=== PATIENT | female | born 1965 | race African-American/Black ===

== ENCOUNTER → 2016-07-14 17:07 | Outpatient (CLI) | payer OTHER | END | disposition home or self-care (01) | LOC: D.MAMMO 15:30 | DX: Z12.31 Encounter for screening mammogram for malignant neoplasm of breast (principal); N95.9 Unspecified menopausal and perimenopausal disorder ==

== ENCOUNTER 2017-02-16 05:20 | Day surgery (SDC) | payer OTHER ==
[2017-02-15 08:42] LABS: HEMATOCRIT 39.3 % (36.0-48.0); HEMOGLOBIN 12.9 g/dL (12-16); MCH 31.1 pg (26.0-34.0); MCHC 32.8 g/dL (31.0-37.0); MCV 94.7 fL (80.0-100.0); RBC 4.15 10x6/uL (4.00-5.40); WBC 9.1 10x3/uL (4.8-10.8)
[~2017-02-16] VITALS: Ht 160 cm; Wt 55.3 kg
[2017-02-16] MEDS ORDERED: TAPAZOLE 10 MG10 MG PO (05:49)
[2017-02-16 05:50] VITALS: BP 102/62; Ht 160 cm; Wt 55.3 kg
[2017-02-16] MEDS ORDERED: LEVAQUIN500 MG PO (05:50)
[2017-02-16] MEDS ORDERED: HYDROCODONE-APA1 TAB PO (08:47)
--- NOTE | 2017-02-16 11:44 | OP ---
PATIENT NAME: LUIS ARMANDO MEDICAL RECORD: [id number] :63 LOCATION:D.OPS ADMISSION DATE: SURGEON: MISAEL PEOPLES MD DATE OF OPERATION: 02/16/2017 PREOPERATIVE DIAGNOSIS: Right carpal tunnel syndrome. POSTOPERATIVE DIAGNOSIS: Right carpal tunnel syndrome. PROCEDURE: Right carpal tunnel release. SURGEON: Misael Peoples MD ANESTHESIA: General laryngeal mask airway. INTRAOPERATIVE COMPLICATIONS: None. SUMMARY OF PATHOLOGIC FINDINGS: A very tight transverse carpal ligament consistent with the preoperative diagnosis, EMGs and NCVS. OPERATIVE SUMMARY IN DETAIL: After obtaining the appropriate preoperative orthopedic surgery consent as well as anesthetic consultation, evaluation and clearance, the patient was brought to the operating room and placed on the operating table in supine position. After general laryngeal mask airway was administered, tourniquet was placed about the proximal aspect of the right upper extremity. Right upper extremity was then prepped and draped in routine sterile fashion. The arm was elevated and exsanguinated, tourniquet inflated to 250 mmHg. Incision was made in the mid palmar crease in line with the fourth metacarpal ray, taken down to the level of transverse metacarpal ligament. This was identified, slight incision was made. The median nerve was identified and protected throughout the case. [place] light knife was then used to release the entire transverse carpal ligament to the proximal wrist crease. Having completed this, the wound was copiously irrigated and closed with 4-0 Prolene in mattress fashion. Area was locally infiltrated with 0.25% Marcaine plain. Sterile dressings were applied. Tourniquet was deflated. The patient was awakened and taken to the recovery room in stable condition. All final needle and sponge counts were correct. TRANSINT:[id number] Voice Confirmation ID: [id number] DOCUMENT ID: [id number] MISAEL PEOPLES MD at 1144 CC: [id number] DICTATION DATE: 02/16/17 0850 DIRECTOR OF RELIGIOUS ACTIVITIES: 02/16/17 1115 [facility] 02/16/17 [facility] [address] [place] [address]
== END 2017-02-16 10:30 | disposition home or self-care (01) ==
LOC: D.OPS 05:20 → D.PAN 07:30 → D.OPS 07:30
PROVIDERS: Anesthesiology
DX: G56.01 Carpal tunnel syndrome, right upper limb (principal); F17.200 Nicotine dependence, unspecified, uncomplicated; E05.90 Thyrotoxicosis, unspecified without thyrotoxic crisis or storm; Z01.812 Encounter for preprocedural laboratory examination

== ENCOUNTER → 2017-09-19 15:44 | Outpatient (CLI) | payer OTHER ==
[2017-02-16 05:50] VITALS: BMI 21.6
[~2017-09-19 15:44] MED LIST: CYCLOBENZAPRINE10 MG PO; HYDROCODONE-APA1 TAB PO; LEVAQUIN500 MG PO; TAPAZOLE 10 MG10 MG PO
== END | disposition home or self-care (01) ==
LOC: D.MRI 15:30
DX: M25.531 Pain in right wrist (principal)

== ENCOUNTER 2017-11-05 10:06 | Emergency (ER) | payer OTHER ==
[~2017-11-05] VITALS: Ht 160 cm; Wt 50.0 kg
[~2017-11-05 10:06] MED LIST changes: -CYCLOBENZAPRINE10 MG PO
[2017-11-05 10:11] VITALS: Ht 160 cm; Wt 50.0 kg
[2017-11-05] MEDS ORDERED: CYCLOBENZAPRINE10 MG PO (12:05)
[2017-11-05 13:43] VITALS: BP 123/81
== END 2017-11-05 13:45 | disposition home or self-care (01) ==
LOC: D.ER 10:06
DX: S39.012A Strain of muscle, fascia and tendon of lower back, initial encounter (principal); V43.62XA Car passenger injured in collision with other type car in traffic accident, initial encounter; Y93.89 Activity, other specified; Y92.410 Unspecified street and highway as the place of occurrence of the external cause; M54.6 Pain in thoracic spine; E07.9 Disorder of thyroid, unspecified

== ENCOUNTER → 2017-12-17 09:01 | Outpatient (CLI) | payer OTHER ==
[2017-11-05 10:11] VITALS: BMI 19.5
[~2017-12-17 09:01] MED LIST changes: +CYCLOBENZAPRINE10 MG PO
== END | disposition home or self-care (01) ==
LOC: D.MRI 09:00
DX: M54.5 Low back pain (principal)

== ENCOUNTER 2019-01-13 08:00 | Outpatient (CLI) | payer OTHER ==
[2017-11-05 10:11] VITALS: BMI 19.5
== END 2019-01-13 23:59 | disposition home or self-care (01) ==
LOC: D.MAMMO 08:00
PROVIDERS: ATTEND Family Medicine
DX: Z12.31 Encounter for screening mammogram for malignant neoplasm of breast (principal)

== ENCOUNTER → 2019-02-11 10:00 | Outpatient (CLI) | payer OTHER ==
[2017-11-05 10:11] VITALS: BMI 19.5
== END | disposition home or self-care (01) ==
LOC: D.MAMMO 09:30
PROVIDERS: ATTEND Family Medicine
DX: R92.8 Other abnormal and inconclusive findings on diagnostic imaging of breast (principal)